=== PATIENT | female | born 1950 | race Two or more races ===

== ENCOUNTER 2022-10-04 01:50 | Inpatient (IN) | payer MEDICARE, MEDICAID ==
[~2022-10-04] VITALS: Ht 160 cm; Wt 60.3 kg
[2022-10-04] MEDS ORDERED: clonazePAM 0.5 MG TABLET PO PRN (02:30)
[2022-10-04] MEDS ORDERED: MAG HYDROX/AL HYDROX/SIMETH 30 ML UDC PO PRN (02:30)
[2022-10-04] MEDS ORDERED: ACETAMINOPHEN 325 MG TABLET PO PRN (02:30)
[2022-10-04] MEDS ORDERED: MAGNESIUM HYDROXIDE 30 ML UDC PO PRN (02:30)
[2022-10-04] MEDS ORDERED: MELA10TA10 PO (02:42)
[2022-10-04] MEDS ORDERED: ESCI5TAB PO (02:42)
[2022-10-04 03:06] VITALS: BP 115/71
--- NOTE | 2022-10-04 03:20 | NUR ---
GPS ADMISSION NOTE: ADMITTED 72 Y/O FEMALE FROM [facility]. ARRIVED ON THIS UNIT AT 0200 VIA STRETCHER WITH 2 EMT ESCORTS. PATIENT ADMITTED ON 5150 HOLD FOR DTS AND DTO. PATIENT SUBJECT USED SHARP KNIFE AND THREATENED TO KILL HERSELF AND HER DAUGHTER. UPON FACE TO FACE ASSESSMENT.PATIENT IS NOTED ,DISHEVELED ,DISORGANIZED,UNCOOPERATIVE ,AGGRESSIVE,CONFUSED ,DISORGANIZED AND NEEDS REDIRECTION. PATIENT IS CURRENTLY LYING IN BED,AWAKE HAS NO S/S OR COMPLAINT OF PAIN.PATIENT IS DISPLAYING NO S/S OF APPARENT DISTRESS.PATIENT BREATHING EVEN AND UNLABORED WITH EQUAL RISE AND FALL OF CHEST.PATIENT IS ALERT AND ORIENTED X1.ON ROOM AIR.PATIENT ASSISTED FOR TURNING AND REPOSITION Q2H AND PRN FOR COMFORT AND CIRCULATION.PATIENT HAS NO NEEDS AT THIS TIME.PATIENT DENIES SUICIDE IDEATIONS AND HOMICIDAL IDEATIONS AT THIS TIME.PATIENT REFUSED TO SIGN ANY PAPER WORK.DUE TO CONFUSION. PATIENT ADVISED OF HER HOLD AND PATIENT RIGHTS BOOKLET GIVEN.PATIENT IS UNDER THE PSYCHIATRIC CARE OF AND THE MEDICAL CARE OF DAVE DUCKWORTH. CHECKED FOR CONTRABAND. PATIENT HAS NO CONTRABAND .PATIENT ADVANCED DIRECTIVES PREFERENCE,IMMUNIZATIONS QUESTIONER,NECESSARY PAPER WORKS COMPLETED.PATIENT REFUSED SKIN ASSESSMENT. AND BLOOD SUGAR CHECK/ENCOURAGE BUT STRONGLY REFUSED. PATIENT ORIENTATED TO ROOM.FLOOR,AND STAFF WITH ALL QUESTIONS ANSWERED.PATIENT EDUCATED TO THE USE OF THE CALL THEODORE.PATIENT BED SIDE RAILS UPX2 FOR SAFETY.PATIENT BED IS LOCKED,LOW AND WILL CONTINUE TO MONITOR THIS PATIENT Q15 MIN WITH THE HELP OF STAFF TO MAINTAIN SAFETY.
[2022-10-04] MEDS ORDERED: BLOOD SUGAR DIAGNOSTIC 1 EACH STRIP IN ONE (03:30)
--- NOTE | 2022-10-04 03:37 | NUR ---
NURSE NOTE: PATIENT REFUSED MRSA NARES SWAB .ENCOURAGE X3 BUT PATIENTS STRONGLY REFUSED. PATEINT IS ANXIOUS,CONFUSED,DISORIENTED ,DISORGANIZED AND VERY AGITATED.
[2022-10-04] MEDS: ESCITALOPRAM OXALATE (10 MG) 10 MG TABLET PO SCH (12:00)
[2022-10-04] MEDS: ARIPIPRAZOLE 2 MG TABLET PO SCH (12:00)
--- NOTE | 2022-10-04 12:40 | NUR ---
GPS/RN PT REFUSED MEDS FOR 1200 OFFERED X3. COMMUNICATED WITH HELP OF ANASTASIIA ESCAMILLA LVN PT IS SYRIAN SPEAKING.
[2022-10-04 16:00] VITALS: BP 157/87
[2022-10-04 20:29] VITALS: BP 150/68
[2022-10-05 08:00] VITALS: BP 140/56
[2022-10-05] MEDS: ESCITALOPRAM OXALATE (10 MG) 10 MG TABLET PO SCH (09:00)
[2022-10-05] MEDS: ARIPIPRAZOLE 2 MG TABLET PO SCH (09:00)
--- NOTE | 2022-10-05 09:12 | NUR ---
CHASTITY Clinical Note: Pt placed on a 5150 hold for danger to self and GD. Pt grabbed a knife wanting to end her life. Pt has been aggressive at home. Per hold, pt lives at home located at [address] [place], [place] [id number]. SW will locate family contact information to discuss treatment/discharge plan.
--- NOTE | 2022-10-05 09:12 | NUR ---
CHASTITY Initial Discharge Plan: Per hold, pt lives at home located at [address] [place] [address]. SW will locate family contact information to discuss treatment/discharge plan. CHASTITY will coordinate with MD, family, and pt to help coordinate appropriate discharge.
--- NOTE | 2022-10-05 11:06 | NUR ---
RN-CO: PATIENT DENIES PAIN AND DISCOMFORTS. KENYAN SPEAKING, SHE IS EASILY AGITATED, SHE IS PARANOID AND REFUSED ALL HER MEDICATIONS. SHE DOESN'T WANT TO ATTEND GROUP ACTIVITIES. WE NOTIFIED DR JENKINS OF MEDICATION REFUSAL.
--- NOTE | 2022-10-05 11:07 | NUR ---
RN-CO: PT IS ALSO VERY CONFUSED AND DISORGANIZED, SHE NEEDS MODERATE ASSISTANCE IN ADL.
--- NOTE | 2022-10-05 11:50 | NUR ---
CHASTITY Family Contact: CHASTITY contacted pt's daughter Denisse ([phone]) and discussed treatment/discharge plan. She stated that she is the DPOA and will send the information to this ticket writer. Daughter stated that pt has been diagnosed with dementia when she was 60-65 year old and stated that it has been declining. She stated that pt was living at her residence but daughter moved in with her due to her not being able to care for self. She stated that she has a CHASTITY Pizarro ([phone]) who would want this ticket writer to contact to coordinate dc. CHASTITY will call and coordinate.
--- NOTE | 2022-10-05 12:00 | NUR ---
CHASTITY Note: SW contacted pt's CHASTITY Pizarro ([phone]) and the mailbox was full unable to accept any messages. SW will attempt to contact again.
--- NOTE | 2022-10-05 15:32 | NUR ---
CHASTITY DPOA PAPERWORK: Pt daughter Denisse ([phone]) sent DPOA document. SW placed in the chart.
[2022-10-05 20:44] VITALS: BP 142/68
[2022-10-05] MEDS: TEMAZEPAM 7.5 MG CAPSULE PO PRN (22:42)
[2022-10-06 08:00] VITALS: BP 133/61
[2022-10-06] MEDS: ESCITALOPRAM OXALATE (10 MG) 10 MG TABLET PO SCH (09:00)
[2022-10-06] MEDS: ARIPIPRAZOLE 2 MG TABLET PO SCH (09:00)
[2022-10-06 16:00] VITALS: BP 140/88
[2022-10-06 19:41] VITALS: BP 154/72
[2022-10-06] MEDS: TEMAZEPAM 7.5 MG CAPSULE PO PRN (20:39)
[2022-10-07 08:00] VITALS: BP 151/76
[2022-10-07] MEDS: ESCITALOPRAM OXALATE (10 MG) 10 MG TABLET PO SCH (09:00)
[2022-10-07] MEDS: ARIPIPRAZOLE 2 MG TABLET PO SCH (09:00)
--- NOTE | 2022-10-07 10:13 | NUR ---
RN-CO: DR JENKINS MADE AWARE THAT PT REFUSED HER PSYCH MEDS X 3DAYS, AWAITING FOR RESPONSE.
--- NOTE | 2022-10-07 10:47 | NUR ---
RN-CO: Received patient pacing along the hallway,appears to be confused,talking ,mumbling ,taklking to self,preoccupied to her own thought process.No s/s of acute distress noted.Will continue to monitor q15 min rounds for safety. PATIENT REFUSED ALL MEDS IN THE MORNING, DR JENKINS MADE AWARE.
--- NOTE | 2022-10-07 15:10 | NUR ---
Court Hearing: SW notified patient's Denisse ([phone]) DPOA of 5250 hearing.
--- NOTE | 2022-10-07 15:15 | NUR ---
Court Hearing: Patient's court hearing for 2810 was today and it was upheld for GD.
[2022-10-07 16:00] VITALS: BP 155/80
[2022-10-07 20:19] VITALS: BP 136/86
[2022-10-08 08:00] VITALS: BP 118/63
[2022-10-08] MEDS: ESCITALOPRAM OXALATE (10 MG) 10 MG TABLET PO SCH (09:00)
[2022-10-08] MEDS: ARIPIPRAZOLE 2 MG TABLET PO SCH (09:00)
[2022-10-08 16:00] VITALS: BP 146/60
--- NOTE | 2022-10-08 17:53 | NUR ---
Dr. Ahn made aware that the Rise hearing scheduled tomorrow 10/09/22 @9:30AM.
--- NOTE | 2022-10-08 18:05 | NUR ---
RN-NOTES PATIENT STAYS IN THE ROOM THIS SHIFT REFUSED TO EAT DESPITE ENCOURAGEMENT AND EXPLANATIONS RISK AND BENEFITS.PATIENT GETS ANGRY AND IRRITABLE. PATIENT IS NON COMPLIANT WITH MEDICATIONS. PATIENT DRINK MILK AND WATER ONLY.PATIENT AMBULATES TO THE BATHROOM WITH STEADY GAIT.WILL ENDORSE TO INCOMING NURSE FOR THE CONTINUITY OF CARE.
[2022-10-08 20:00] VITALS: BP 112/68
--- NOTE | 2022-10-08 20:02 | NUR ---
RN NOTES:RECEIVED PATIENT WALKING AROUND THE UNIT, A/OX1. NO S/SX OF ACUTE DISTRESS NOTED. PATIENT IS ,CONFUSED, FORGETFUL ANXIOUS, EASILY AGITATED ,DELUSIONAL , LOUD TALIKG TO SELF , UNCOOPERTIVE, PARANOID , GUARDED NON COMPLIANT WITH CARE AND MEDS,NEEDS FREQUENTLY REDIRECTIONS, ENCOURAGED TO VERBALIZED ANY FEELING OR CONCERN ,SAFETY PRECAUTIONS MAINTAINED. WILL CONTINUE TO MONITOR Q15MIN ROUNDS FOR SAFETY.
--- NOTE | 2022-10-08 22:14 | NUR ---
RN NOTES: REFUSED SKIN ASSESSMENT PT. REFUSED FULL BODY SKIN ASSESSMENT, AND PHOTOS TAKEN, ENCOURAGED X3 RISKS AND BENEFITS EAXPLAINED,PT. STRONGLY REFUSED,PER PT.STATES MY SKIN IS FINE, PT. BEHAVIOR VERY UNCCOOPERTIVE,YELLING SCREAMING ANXIOUS, PARANOID, NONREDIRECTABLE .
[2022-10-09 08:00] VITALS: BP 133/90
[2022-10-09] MEDS: ESCITALOPRAM OXALATE (10 MG) 10 MG TABLET PO SCH (09:00)
[2022-10-09] MEDS: ARIPIPRAZOLE 2 MG TABLET PO SCH ×2 (09:00→16:11)
--- NOTE | 2022-10-09 09:11 | NUR ---
RN-NOTES PATIENT REFUSED ABILIFY AND LEXAPRO P.O DESPITE EXPLANATIONS OF THE RISK AND BENEFITS WITH THE ESTONIAN SPEAKING STAFF HELP. PATIENT CONTINUE TO REFUSED. OFFERED X3.
[2022-10-09 16:00] VITALS: BP 112/52
[2022-10-09] MEDS: OLANZAPINE 10 MG VIAL IM PRN (16:14)
--- NOTE | 2022-10-09 17:08 | NUR ---
RN-NOTES PATIENT REFUSED ABILIFY 2MG P.O. ZYPREXA 2.5MG IM GIVEN ORDERED. PATIENT IS RIEISED.
--- NOTE | 2022-10-09 19:30 | NUR ---
GPS RN NOTE, RECEIVED PATIENT AWAKE AND IN BED, NO S/S OR COMPLAINTS OF PAIN AT THIS TIME. PATIENT IS DISPLAYING NO S/S OF APPARENT DISTRESS AT THIS TIME. PATIENT BREATHING IS UNLABORED WITH EQUAL RISE AND FALL OF THE CHEST. PATIENT IS ALERT AND ORIENTED X 1 ON ROOM AIR WITH A SPO2 99%. PATIENT IS REFUSING MEDICATIONS, CONFUSED, PARANOID, ANXIOUS AT TIMES, AND COOPERATIVE. PATIENT DENIES SUICIDAL AND HOMICIDAL IDEATIONS AT THIS TIME. PATIENT ASSISTED WITH TURNING AND REPOSITIONING Q2HR AND PRN FOR COMFORT AND CIRCULATION. PATIENT HAS NO NEEDS AT THIS TIME. PATIENT EDUCATED ON THE USE OF THE CALL THEODORE. PATIENT BED SIDE RAILS UP X 2 FOR SAFETY. PATIENT BED IS LOCKED, LOW, WITH BED ALARM ON. WILL CONTINUE TO MONITOR THIS PATIENT Q15 MINUTES WITH THE HELP OF STAFF TO MAINTAIN SAFETY.
[2022-10-09 20:00] VITALS: BP 115/96
[2022-10-10 08:00] VITALS: BP 145/89
[2022-10-10] MEDS: ARIPIPRAZOLE 2 MG TABLET PO SCH ×3 (09:00→17:00)
[2022-10-10] MEDS: ESCITALOPRAM OXALATE (10 MG) 10 MG TABLET PO SCH ×2 (09:00→09:40)
[2022-10-10] MEDS: OLANZAPINE 10 MG VIAL IM PRN ×2 (09:52→17:18)
[2022-10-10 16:00] VITALS: BP 145/68
--- NOTE | 2022-10-10 16:30 | NUR ---
NURSE NOTE: PT VERY SLEEPY THROUGHOUT SHIFT. ATTEMPTED TO HAVE PT EAT, BUT SHE REFUSED. TRIED TO WAKE PT UP FOR 1700 MEDS, BUT PT VERY SLEEPY AND REFUSED. DR ROSA NOTIFIED. ORDERED TO HOLD 1700 DOSE OF ZYPREXA. WILL CONT TO MONITOR.
[2022-10-10 16:50] LABS: BASOPHILS % (AUTO) 0.6 % (0.0-2.0); EOSINOPHILS % (AUTO) 1.2 % (0.0-6.0); HEMATOCRIT 39 % (33-45); HEMOGLOBIN 12.1 g/dL (11.5-14.8); LYMPHOCYTES # (AUTO) 1.5 K/uL (0.8-4.8); LYMPHOCYTES % (AUTO) 20.6 % (20.0-44.0); MEAN CORPUSCULAR HGB CONC 31 g/dl (31.0-36.0); MEAN CORPUSCULAR VOLUME 81 fL (82-100); MONOCYTES # (AUTO) 0.4 K/uL (0.1-1.30); MONOCYTES % (AUTO) 5.2 % (2.0-12.0); NEUTROPHILS # (AUTO) 5.3 K/uL (1.8-8.9); NEUTROPHILS % (AUTO) 72.4 % (43.0-81.0); PLATELET COUNT (AUTO) 312 K/uL (150-450); RED BLOOD CELL COUNT(AUTO) 4.76 MIL/uL (4.0-5.2); WHITE BLOOD COUNT (AUTO) 7.3 K/uL (4.3-11.0)
[2022-10-10 17:13] LABS: ALBUMIN 3.7 g/dL (3.4-5.0); BILIRUBIN,TOTAL 0.2 mg/dL (0.2-1.0); CALCIUM, SERUM 9.8 mg/dL (8.5-10.1); POTASSIUM 4.9 mmol/L (3.5-5.1); TOTAL PROTEIN, SERUM 7.4 g/dL (6.4-8.2)
--- NOTE | 2022-10-10 20:06 | NUR ---
RECEIVED PATIENT SITTING UP IN TAYLOR CHAIR,AWAKE ALERT A/OX1. NO S/SX OF ACUTE DISTRESS NOTED.REFUSED TO STAYING IN BED,HIGH FALL RISKS PATIENT IS ,CONFUSED, FORGETFUL ANXIOUS, EASILY AGITATED DELUSIONAL , LOUD TALIKG TO SELF , UNCOOPERTIVE, PARANOID , GUARDED NON COMPLIANT WITH CARE AND MEDS,NEEDS FREQUENTLY REDIRECTIONS, ENCOURAGED TO VERBALIZED ANY FEELING OR CONCERN ,SAFETY PRECAUTIONS MAINTAINED. WILL CONTINUE TO MONITOR Q15MIN ROUNDS FOR SAFETY.
[2022-10-10 20:33] VITALS: BP 125/68
[2022-10-11 08:00] VITALS: BP 161/84
[2022-10-11] MEDS: ESCITALOPRAM OXALATE (10 MG) 10 MG TABLET PO SCH (09:46)
[2022-10-11] MEDS: ENSURE ENLIVE CHOC 237 ML CAN PO SCH ×2 (09:46→17:04)
[2022-10-11] MEDS: ARIPIPRAZOLE 2 MG TABLET PO SCH ×2 (09:46→17:03)
[2022-10-11 16:00] VITALS: BP 136/65
--- NOTE | 2022-10-11 16:18 | NUR ---
NURSE NOTE: PT ANXIOUS, TAKING CLOTHES OFF, YELLING AT STAFF. KLONOPIN PO ADMINISTERED ORDERED. PT KOBE WELL. WILL CONT TO MONITOR.
--- NOTE | 2022-10-11 17:18 | NUR ---
NURSE NOTE: PT CALM AT THIS TIME, ATIVAN EFFECTIVE AT THIS TIME. WILL CONT TO MONITOR.
[2022-10-11 20:45] VITALS: BP 140/66
[2022-10-12 08:00] VITALS: BP 128/53
[2022-10-12] MEDS: ENSURE ENLIVE CHOC 237 ML CAN PO SCH ×2 (08:00→16:39)
[2022-10-12] MEDS: ESCITALOPRAM OXALATE (10 MG) 10 MG TABLET PO SCH (09:53)
[2022-10-12] MEDS: ARIPIPRAZOLE 2 MG TABLET PO SCH ×2 (09:54→16:39)
[2022-10-12 16:00] VITALS: BP 133/57
[2022-10-12 20:26] VITALS: BP 128/59
[2022-10-12] MEDS: TEMAZEPAM 7.5 MG CAPSULE PO PRN (22:25)
--- NOTE | 2022-10-12 22:25 | NUR ---
NURSE NOTE: PT UNABLE TO SLEEP AT THIS TIME. TEMAZEPAM ADMIN ORDERED. PT KOBE WELL. WILL CONT TO MONITOR.
--- NOTE | 2022-10-12 23:25 | NUR ---
NURSE NOTE: PT CONT AWAKE, BUT IS DROWSY. WILL CONT TO MONITOR AND PASS IN REPORT.
[2022-10-13 08:00] VITALS: BP 142/44
[2022-10-13] MEDS: ENSURE ENLIVE CHOC 237 ML CAN PO SCH ×2 (08:30→17:18)
[2022-10-13] MEDS: ESCITALOPRAM OXALATE (10 MG) 10 MG TABLET PO SCH (08:54)
[2022-10-13] MEDS: ARIPIPRAZOLE 2 MG TABLET PO SCH ×2 (08:54→17:19)
[2022-10-13 16:00] VITALS: BP 111/72
--- NOTE | 2022-10-13 19:03 | NUR ---
RN- CLOSING NOTES PATIENT IS SAT UP IN THE TAYLOR CHAIR, BREATHING EVEN AND NON LABORED WITH NO S/S OF DISTRESS. PATIENT IS HYPERVERBAL, CONFUSED, AGGRESSIVE, EASILY AGITATED, UNCOOPERATIVE, ATTEMPTING TO STICK OUT AT STAFF AND RESISTANT TO MEDICATIONS BUT MEDICATION COMPLIANT WITH ENCOURAGEMENT. DENIES SI/HI AT THIS TIME. WILL CONTINUE TO MONITOR Q 15 MINUTES FOR SAFETY AND BEHAVIOR.
[2022-10-13 20:12] VITALS: BP 133/56
[2022-10-13] MEDS: TEMAZEPAM 7.5 MG CAPSULE PO PRN (21:16)
[2022-10-14 08:00] VITALS: BP 122/53
[2022-10-14] MEDS: ENSURE ENLIVE CHOC 237 ML CAN PO SCH ×2 (08:10→17:10)
[2022-10-14] MEDS: ESCITALOPRAM OXALATE (10 MG) 10 MG TABLET PO SCH (09:04)
[2022-10-14] MEDS: ARIPIPRAZOLE 2 MG TABLET PO SCH ×2 (09:04→17:10)
[2022-10-14 16:00] VITALS: BP 119/67
--- NOTE | 2022-10-14 18:52 | NUR ---
RN- CLOSING NOTES PATIENT IS SAT UP IN THE TAYLOR CHAIR, BREATHING EVEN AND NON LABORED WITH NO S/S OF DISTRESS. PATIENT IS CONFUSED, EASILY AGITATED, UNCOOPERATIVE, ISOLATIVE, QUIET, AND ATTEMPTING TO GET OUT OF BED WITHOUT ASSISTANCE. PATIENT IS RESISTANT TO MEDICATIONS BUT MEDICATION COMPLIANT WITH ENCOURAGEMENT. DENIES SI/HI BUT IS CONFUSED AT THIS TIME. WILL CONTINUE TO MONITOR Q 15 MINUTES FOR SAFETY AND BEHAVIOR.
[2022-10-14 20:14] VITALS: BP 133/54
[2022-10-15] MEDS: TEMAZEPAM 7.5 MG CAPSULE PO PRN (00:12)
--- NOTE | 2022-10-15 00:15 | NUR ---
RN NOTES-RESTORIL PATIENT IS VERY ANXIOUS AND RESTLESS. GAVE RESTORIL 7.5MG PRN WITH APPLE SAUCE. WILL CONTINUE TO MONITOR THE PATIENT.
[2022-10-15 08:00] VITALS: BP 119/67
[2022-10-15] MEDS: ENSURE ENLIVE CHOC 237 ML CAN PO SCH ×2 (08:10→16:26)
[2022-10-15] MEDS: ESCITALOPRAM OXALATE (10 MG) 10 MG TABLET PO SCH (10:19)
[2022-10-15] MEDS: ARIPIPRAZOLE 2 MG TABLET PO SCH ×2 (10:20→16:16)
--- NOTE | 2022-10-15 10:54 | NUR ---
CHASTITY Facility Referral: CHASTITY sent clinicals to Paige montero ([phone]) to help find placement. CHASTITY sent H & P, progress notes, and medication list.
--- NOTE | 2022-10-15 11:24 | NUR ---
CHASTITY Facility Contact: CHASTITY spoke with Paige montero ([phone]) who stated pt is accepted at [facility]
[2022-10-15 16:00] VITALS: BP 134/65
--- NOTE | 2022-10-15 18:02 | NUR ---
RN-NOTES PATIENT IN THE DAY ROOM UP IN THE TAYLOR CHAIR,GUARDED, A/O X1 NO ACUTE DISTRESS NOTED. COMPLIANT WITH MEDICATIONS.NOTED PATIENT TALKING AND WHISTLING TO SELF . NEEDS FREQUENT REDIRECTION AND ORIENTATION.PATIENT NEEDS MODERATE ASSIST IN AMBULATION AND ADL'S. GOOD DIANE CARE RENDERED. ALL NEEDS ATTENDED AND ANTICIPATED. WILL ENDORSE TO INCOMING NURSE FOR CONTINUITY OF CARE.
--- NOTE | 2022-10-15 20:05 | NUR ---
RECEIVED PATIENT SITTING UP IN TAYLOR CHAIR,AWAKE ALERT A/OX1. NO S/SX OF ACUTE DISTRESS NOTED.REFUSED TO STAYING IN BED,HIGH FALL RISKS PATIENT IS ,CONFUSED, FORGETFUL, ANXIOUS, EASILY AGITATED DELUSIONAL , LOUD TALIKG TO SELF , UNCOOPERTIVE, PARANOID , GUARDED, NON COMPLIANT WITH CARE AND MEDS,NEEDS FREQUENTLY REDIRECTIONS, ENCOURAGED TO VERBALIZED ANY FEELING OR CONCERN ,SAFETY PRECAUTIONS MAINTAINED. WILL CONTINUE TO MONITOR Q15MIN ROUNDS FOR SAFETY.
[2022-10-16 08:00] VITALS: BP 129/97
[2022-10-16] MEDS: ARIPIPRAZOLE 2 MG TABLET PO SCH ×2 (08:16→16:08)
[2022-10-16] MEDS: ENSURE ENLIVE CHOC 237 ML CAN PO SCH ×2 (08:16→17:41)
[2022-10-16] MEDS: ESCITALOPRAM OXALATE (10 MG) 10 MG TABLET PO SCH (08:16)
--- NOTE | 2022-10-16 12:05 | NUR ---
CHASTITY Family Contact: SW contacted pt's daughter Denisse ([phone]) and discussed that pt is accepted at [facility] and she was agreeable of this.
[2022-10-16 16:00] VITALS: BP 144/72
--- NOTE | 2022-10-16 18:07 | NUR ---
RN-NOTES PATIENT IN THE DAY ROOM UP IN THE TAYLOR CHAIR,GUARDED, A/O X1 NO ACUTE DISTRESS NOTED. COMPLIANT WITH MEDICATIONS.NOTED PATIENT TALKING TO SELF . NEEDS FREQUENT REDIRECTION AND ORIENTATION.PATIENT NEEDS MODERATE ASSIST IN AMBULATION AND ADL'S. GOOD DIANE CARE RENDERED. ALL NEEDS ATTENDED AND ANTICIPATED. WILL ENDORSE TO INCOMING NURSE FOR CONTINUITY OF CARE.
[2022-10-16 20:00] VITALS: BP 117/61
--- NOTE | 2022-10-16 20:40 | NUR ---
GPS SANITATION WORKER HOSING MACHINERY NOTE:RECEIVED PATIENT SITTING UP IN TAYLOR CHAIR,AWAKE ALERT A/OX1. NO S/SX OF ACUTE DISTRESS NOTED.REFUSED TO STAYING IN BED,HIGH FALL RISKS PATIENT IS ,CONFUSED, FORGETFUL, ANXIOUS, EASILY AGITATED DELUSIONAL , LOUD TALKING TO SELF , UNCOOPERTIVE, PARANOID , GUARDED, NON COMPLIANT WITH CARE AND MEDS,NEEDS FREQUENTLY REDIRECTIONS, ENCOURAGED TO VERBALIZED ANY FEELING OR CONCERN ,SAFETY PRECAUTIONS MAINTAINED. WILL CONTINUE TO MONITOR Q15MIN FOR SAFETY AND BEHAVIOR.
[2022-10-17] MEDS: ENSURE ENLIVE CHOC 237 ML CAN PO SCH ×2 (07:45→17:11)
[2022-10-17 08:00] VITALS: BP 136/88
[2022-10-17] MEDS: ARIPIPRAZOLE 2 MG TABLET PO SCH ×2 (08:12→17:11)
[2022-10-17] MEDS: ESCITALOPRAM OXALATE (10 MG) 10 MG TABLET PO SCH (08:12)
[2022-10-17 16:00] VITALS: BP 125/59
--- NOTE | 2022-10-17 18:28 | NUR ---
RN-NOTES PATIENT IN THE DAY HALLWAY UP IN THE TAYLOR CHAIR,GUARDED, A/O X1 NO ACUTE DISTRESS NOTED. COMPLIANT WITH MEDICATIONS.NOTED PATIENT TALKING AND MUMBLING TO SELF . NEEDS FREQUENT REDIRECTION AND ORIENTATION.PATIENT NEEDS MODERATE ASSIST IN FEEDING, AMBULATION AND ADL'S. GOOD DIANE CARE RENDERED. ALL NEEDS ATTENDED AND ANTICIPATED. WILL ENDORSE TO INCOMING NURSE FOR CONTINUITY OF CARE.
--- NOTE | 2022-10-17 19:40 | NUR ---
referral rn notes: Received patient sitting in dasha chair in the hallway. Mumbling to herself in cuban. Patient stated that "she speaks little yakut only". a/o x1. calm. Patient needs frequent redirecting. no c/o pain at this time. On room air. breathing even and unlabored. no acute distress noted. will continue to monitor for safety and behavior.
--- NOTE | 2022-10-17 20:30 | NUR ---
sugar cane farm manager notes: Patient refused vital signs to be taken. attempted x3, explaining the benefits, patient still refused.
[2022-10-18] MEDS: TEMAZEPAM 7.5 MG CAPSULE PO PRN ×3 (00:57→23:00)
--- NOTE | 2022-10-18 01:00 | NUR ---
commercial pest control representative notes: administered PRN Restoril 7.5 mg po for insomnia.
--- NOTE | 2022-10-18 06:33 | NUR ---
REAL ESTATE OFFICE MANAGER NOTES: PATIENT AWAKE AT THIS TIME. CALM. NO ACUTE DISTRESS NOTED. CONFUSED. EASILY AGITATED. HYPERVERBAL. MEDICATION COMPLIANT. AMBULATORY WITH EPISODES OF WANDERING. NO C/O PAIN AT THIS TIME. ALL NEEDS ANTICIPATED AND ATTENDED. WILL ENDORSE TO ONCOMING SHIFT FOR CONTINUITY OF CARE.
[2022-10-18 08:00] VITALS: BP 132/73
[2022-10-18] MEDS: ENSURE ENLIVE CHOC 237 ML CAN PO SCH ×2 (09:05→17:18)
[2022-10-18] MEDS: ESCITALOPRAM OXALATE (10 MG) 10 MG TABLET PO SCH (09:06)
[2022-10-18] MEDS: ARIPIPRAZOLE 2 MG TABLET PO SCH ×2 (09:06→17:18)
[2022-10-18 16:00] VITALS: BP 124/53
--- NOTE | 2022-10-18 20:00 | NUR ---
RN NOTE PATIENT REFUSED WEEKLY SKIN ASSESSMENT. EXPLAINED RISKS/BENEFITS.
[2022-10-18 20:39] VITALS: BP 136/60
[2022-10-19 08:00] VITALS: BP 131/69
--- NOTE | 2022-10-19 08:09 | NUR ---
SW Discharge Note: Patient will be discharged to usp facility, [facility], located at [place] [address] ([phone]). Please arrange ambulance transportation at 1PM. hospice social worker spoke with Paige montero ([phone]), who stated patient will be accepted at the facility today. Patients daughter Denisse ([phone]) is aware and agreeable. Patient is alert and oriented x1 and is unable to plan for self-care. Patient denies any suicidal or homicidal ideation. Patient is aware and agreeable with discharge plans. Patient will continue to follow-up with (Psychiatrist) Dr. hAn [address], [place] [address]; ([phone]) and (Locomotive Pipe Fitter) Dr. Nathan [address], [place] [address]; ([phone]).
[2022-10-19] MEDS: ENSURE ENLIVE CHOC 237 ML CAN PO SCH (08:35)
[2022-10-19] MEDS: ARIPIPRAZOLE 2 MG TABLET PO SCH (08:35)
[2022-10-19] MEDS: ESCITALOPRAM OXALATE (10 MG) 10 MG TABLET PO SCH (08:36)
--- NOTE | 2022-10-19 14:00 | NUR ---
BONDING MACHINE TENDER NOTE: 72 Y/O FEMALE DISCHARGED TO [facility], IN STABLE CONDITION. COMPLIANT WITH MEDICATIONS, COOPERATIVE WITH TREATMENT PLAN. PT DENIES SI/HI/AVH AND INSTRUCTED TO GO TO THE CLOSEST ER IF DEVELOPING SI/HI. BEHAVIOR IMPROVED, PSYCHIATRIC TX PLAN MET, MEDICAL TX PLAN DEFERRED FOR CONTINUAL MONITORING. EDUCATED PT ABOUT AFTER CARE PLAN AND COPY PROVIDED. PT HAD NO PERSONAL BELONGINGS. MEDICATIONS RECONCILED WITH DR. CRANE AND DR. HAINES. REPORT GIVEN TO DOMINIK NURSE AT [facility] FOR CONTINUITY OF CARE. PT REFUSED TO SIGN DISCHARGE PAPERWORK. NO WOUNDS TO TAKE PICTURES OF PT LEFT THE UNIT AT 1400 VIA AMBULANCE.
== END 2022-10-19 14:00 | DRG 885 ==
LOC: GPS 01:50
PROVIDERS: ADMIT Psychiatry & Neurology Psychiatry; ATTEND Nurse Practitioner Acute Care
DX: F33.3 Major depressive disorder, recurrent, severe with psychotic symptoms (principal); F02.83 Dementia in other diseases classified elsewhere, unspecified severity, with mood disturbance; R45.851 Suicidal ideations; F02.80 Dementia in other diseases classified elsewhere, unspecified severity, without behavioral disturbance, psychotic disturbance, mood disturbance, and anxiety; G30.9 Alzheimer's disease, unspecified; D64.9 Anemia, unspecified; Z79.899 Other long term (current) drug therapy; Z91.199 Patient's noncompliance with other medical treatment and regimen due to unspecified reason; Z91.81 History of falling; Z20.822 Contact with and (suspected) exposure to COVID-19
CPT/HCPCS: 36415; 80053-TC; 85025-TC; 87081-TC; 97116-TC; 97530-TC; J3490

== ENCOUNTER 2022-10-21 18:21 | Inpatient (IN) | payer MEDICARE, OTHER ==
[~2022-10-21] VITALS: Ht 160 cm; Wt 59.0 kg
--- NOTE | 2022-10-21 18:34 | NUR ---
boby, from [facility], sent by PMD, combative, agitated, for psych admission. PLACED IN BED, AWAKE ALERT, LANGUAGE BARRIER, BREATHING UNLABORED SATURATING AT 96%RA, AGITATED. WILL CONTINUE TO MONITOR.
--- NOTE | 2022-10-21 19:17 | NUR ---
Judith knox in [facility] - 10/21/22 at 1936 by ZEINA CRYSTALIZER TENDER AT BEDSIDE
--- NOTE | 2022-10-21 19:17 | NUR ---
WIRE WINDING MACHINE TENDER AT BEDSIDE
--- NOTE | 2022-10-21 19:36 | NUR ---
SWAB FOR COVID19 SENT TO LAB
--- NOTE | 2022-10-21 19:36 | NUR ---
Judith knox in [facility] - 10/21/22 at 1936 by ZEINA SWAB FOR COVID19 SENT TO LAB
[2022-10-21 20:00] LABS: BASOPHILS % (AUTO) 0.5 % (0.0-2.0); EOSINOPHILS % (AUTO) 1.3 % (0.0-6.0); HEMATOCRIT 36 % (33-45); HEMOGLOBIN 11.2 g/dL (11.5-14.8); LYMPHOCYTES # (AUTO) 1.3 K/uL (0.8-4.8); MEAN CORPUSCULAR HGB CONC 31 g/dl (31.0-36.0); MEAN CORPUSCULAR VOLUME 83 fL (82-100); MONOCYTES # (AUTO) 0.4 K/uL (0.1-1.30); MONOCYTES % (AUTO) 3.9 % (2.0-12.0); NEUTROPHILS % (AUTO) 81.3 % (43.0-81.0); PLATELET COUNT (AUTO) 305 K/uL (150-450); RED BLOOD CELL COUNT(AUTO) 4.34 MIL/uL (4.0-5.2); WHITE BLOOD COUNT (AUTO) 9.9 K/uL (4.3-11.0)
--- NOTE | 2022-10-21 20:05 | NUR ---
URINE SAMPLE SENT TO LAB
[2022-10-21 20:16] LABS: ALANINE AMINOTRANSFERASE 26 U/L (12-78); ALBUMIN 3.3 g/dL (3.4-5.0); ALKALINE PHOSPHATASE 106 U/L (46-116); ASPARTATE AMINOTRANSFERASE 29 U/L (15-37); BILIRUBIN,TOTAL 0.1 mg/dL (0.2-1.0); CALCIUM, SERUM 9.3 mg/dL (8.5-10.1); CARBON DIOXIDE 29 mmol/L (21-32); CHLORIDE 106 mmol/L (98-107); CREATININE 1.5 mg/dL (0.6-1.3); GLUCOSE 90 mg/dL (74-106); POTASSIUM 4.7 mmol/L (3.5-5.1); SODIUM SERUM 143 mmol/L (136-145); TOTAL PROTEIN, SERUM 6.6 g/dL (6.4-8.2); UREA NITROGEN, BLOOD 37 mg/dL (7-18)
[2022-10-21 20:23] LABS: THYROID STIMULATING HORMONE 1.668 uIU/mL (0.358-3.74)
[2022-10-21 20:46] LABS: ALCOHOL, BLOOD < 3 mg/dL (0-0)
[2022-10-21 20:53] LABS: BILIRUBIN,URINE NEGATIVE (NEGATIVE); COLOR,URINE YELLOW (YELLOW); LEUKOCYTE ESTERASE ,URINE 2+ (NEGATIVE); NITRITE, URINE POSITIVE (NEGATIVE); PROTEIN,URINE TRACE mg/dl (NEGATIVE); UGLUCOSE NEGATIVE (NEGATIVE); UROBILINOGEN,URINE 0.2 EU/dL (0.2)
--- NOTE | 2022-10-21 20:59 | NUR ---
Judith knox in [facility] - 10/21/22 at 2113 by THELMA NOTIFIED CRISIS EVALUATION TEAM PROSPER GEORGE PSYCH EVALUATION.
--- NOTE | 2022-10-21 21:06 | NUR ---
CALLED LUCIO ENGEL FOR PSYCH EVAL
[2022-10-21 21:12] LABS: WBC,URINE TOO NUMEROUS TO COUN /HPF (0-3)
[2022-10-21 21:13] LABS: BACTERIA,URINE 3+ /HPF (None Seen); MUCUS,URINE Few /LPF (None Seen); SQUAMOUS EPITHELIAL CELL,UR 21-50 /HPF (None Seen)
[2022-10-21] MEDS ORDERED: CEFTRIAXONE 1 G VIAL IM ONE (22:00)
[2022-10-21] MEDS ORDERED: LIDOCAINE /MPF 1% VIAL 5 ML VIAL ONE (22:01)
[2022-10-21] MEDS ORDERED: CEFTRIAXONE 1 G VIAL ONE ×2 (22:01→22:07)
--- NOTE | 2022-10-21 22:29 | NUR ---
REPORT GIVEN TO RENALYN RN ROOM 211 FOR BUDDY
--- NOTE | 2022-10-21 23:09 | NUR ---
RECEIVED REPORT FROM NEREIDA GORDON, PT IN BED, ASLEEP. NO S/SX OF ACUTE RESPI DISTRESS NOTED AT THIS TIME. BILATERAL WRIST RESTRAINTS IN PLACE. WILL CONTINUE TO MONITOR UNTIL TRANSFER TO GPS.
--- NOTE | 2022-10-21 23:42 | NUR ---
[facility] AT BED SIDE
--- NOTE | 2022-10-22 00:30 | NUR ---
pt admitted GPS inpatient transported to 211 via [facility]
[2022-10-22 00:35] VITALS: BP 103/53
--- NOTE | 2022-10-22 00:35 | NUR ---
CUSTOMER PROGRAM MANAGER NOTE ADMITTED A 72-Y/O, FEMALE, PATIENT CAME FROM [facility]. INITIALLY PT CAME FROM [facility]. ADMITTED ON A 5150 HOLD FOR DTO/GD. PER HOLD, PT. ADMITTED HAS BEEN AGGRESSIVE TOWARDS STAFF, THROWING THINGS, REFUSING CARE, YELLING AND SCREAMING AND THREW HER BODILY FLUID AT STAFF. UPON FACE TO FACE EVALUATION, PATIENT IS CONFUSED, DISORGANIZED, EASILY GETS AGITATED/IRRITABLE. VERBALIZATION OF FEELINGS ENCOURAGED. SKIN ASSESSMENT DONE. SKIN INTACT. ALL BELONGINGS WERE CHECKED FOR CONTRABAND. PATIENT'S RIGHTS WERE DISCUSSED AND BOOKLET WAS GIVEN. PATIENT REFUSED TO SIGN ADMISSION PAPERWORK/CONSENT DUE TO CONFUSION. CONTACTED DR. CRANE AND HOSPITALIST DR. LANDIN AND INFORMED THEM OF THE ADMISSION. WILL CONTINUE TO MONITOR THE PATIENT Q15 MINUTES FOR SAFETY. Addendum: 10/22/22 at 0408 by RAMON MANN RN OFFERED PNEUMONIA VACCINE BUT PATIENT REFUSED.
[2022-10-22] MEDS ORDERED: BLOOD SUGAR DIAGNOSTIC 1 EACH STRIP IN ONE (01:00)
[2022-10-22] MEDS ORDERED: ACETAMINOPHEN 325 MG TABLET PO PRN (01:00)
[2022-10-22] MEDS ORDERED: MAG HYDROX/AL HYDROX/SIMETH 30 ML UDC PO PRN (01:00)
[2022-10-22] MEDS ORDERED: MAGNESIUM HYDROXIDE 30 ML UDC PO PRN (01:00)
[2022-10-22] MEDS ORDERED: ARIP5TAB10 PO (03:12)
[2022-10-22] MEDS ORDERED: LACT-246 PO (03:12)
[2022-10-22] MEDS ORDERED: ESCI10TA PO (03:12)
[2022-10-22] MEDS ORDERED: MULT-447 PO (03:12)
[2022-10-22 08:00] VITALS: BP 109/58
[2022-10-22] MEDS: ARIPIPRAZOLE 5 MG TABLET PO SCH ×2 (10:16→17:05)
[2022-10-22] MEDS: ESCITALOPRAM OXALATE (10 MG) 10 MG TABLET PO SCH (10:16)
--- NOTE | 2022-10-22 10:16 | NUR ---
RN- NOTES ABILIFY AND ESCITALOPRAM ADMINISTERED LATE DUE TO WAITING ON ACKNOWLEDGEMENT AND CLARIFICATION OF ORDERS.
--- NOTE | 2022-10-22 10:25 | NUR ---
CHASTITY Clinical Note: Pt placed on a 5150 hold for danger to others and GD. Per hold, she was aggressive at her facility. Patient currently resides at [facility], located at [address] [place] [address] ([phone]). CHASTITY spoke with Paige montero who stated pt is welcomed back. CHASTITY will contact pt's daughter Denisse ([phone]) and discuss treatment/discharge plan.
--- NOTE | 2022-10-22 10:25 | NUR ---
CHASTITY Initial Discharge Note: Patient currently resides at [facility], located at [address] [place] [address] ([phone]). CHASTITY spoke with Paige montero who stated pt is welcomed back. CHASTITY will contact pt's daughter Denisse ([phone]) and discuss treatment/discharge plan. CHASTITY will work with the MD, family, and treatment plan.
--- NOTE | 2022-10-22 10:27 | NUR ---
Treatment Plan: Pt unable to sign treatment plan due to her dementia.
[2022-10-22] MEDS: CEPHALEXIN MONOHYDRATE 250 MG CAPSULE PO SCH ×2 (12:02→21:15)
--- NOTE | 2022-10-22 13:17 | NUR ---
SW Family Contact: SW contacted pt's daughter Denisse ([phone]) and notified of admission. SW discussed treatment/discharge plan. Daughter would want pt to return back to [facility] when stable.
[2022-10-22 16:00] VITALS: BP 125/87
--- NOTE | 2022-10-22 19:57 | NUR ---
VANITA NOTES: RECEIVED PATIENT ON THE HALLWAY SITTING ON THE WHEELCHAIR,ROAMS AROUND . A/O X2 WITH CONFUSION,VERY PARANOID.BREATHING EVEN AND NON-LABORED. NO C/O PAIN AT THIS TIME. ALL NEEDS ATTENDED AND ANTICIPATED.WILL CONTINUE TO MONITOR FOR SAFETY AND BEHAVIOR. Addendum: 10/22/22 at 2315 by MARISABEL AGUILA RN VANITA NOTES: RECEIVED PATIENT ON THE HALLWAY SITTING UP ON THE TAYLOR-CHAIR . A/O X1.CONFUSED ,DISORIENTED,HYPERVERBAL EASILY AGITATED.BREATHING EVEN AND NON-LABORED WITH EQUAL RISE AND FALL OF THE CHEST. NO C/O PAIN AT THIS TIME. ALL NEEDS ATTENDED AND ANTICIPATED.WILL CONTINUE TO MONITOR FOR SAFETY AND BEHAVIOR. DISREGARD IST PARAGRAPH
[2022-10-22 20:22] VITALS: BP 128/60
[2022-10-23] MEDS: CEPHALEXIN MONOHYDRATE 250 MG CAPSULE PO SCH ×3 (05:02→21:17)
--- NOTE | 2022-10-23 07:15 | NUR ---
RN OPENING NOTE: RECEIVED PT UP IN TAYLOR CHAIR IN ACTIVITY ROOM AAOX1 WITH CONFUSION. DISORIENTED, HYPERVERBAL. PT IS ITALIAN SPEAKING.NO COMPLAINS OF PAIN OR DISCOMFORT.ON ROOM AIR, NO SOB NOTED. WILL CONTINUE TO MONITOR Q15MIN WITH THE HELP OF STAFF TO MAINTAIN SAFETY.
[2022-10-23 08:00] VITALS: BP 135/94
[2022-10-23] MEDS: ESCITALOPRAM OXALATE (10 MG) 10 MG TABLET PO SCH (08:26)
[2022-10-23] MEDS: ARIPIPRAZOLE 5 MG TABLET PO SCH (08:26)
--- NOTE | 2022-10-23 09:21 | NUR ---
Dr. Omalley gave an order to D/C hold and D/C to [facility] and to follow up with psych and medical doctors. Dr. Omalley ordered to continue same meds including prn.
[2022-10-23] MEDS: risperiDONE-M 0.5 MG TAB.RAPDIS PO SCH ×2 (10:49→17:13)
[2022-10-23 16:00] VITALS: BP 147/79
--- NOTE | 2022-10-23 20:17 | NUR ---
GARNETT FIXER NOTE:RECEIVED PT UP IN TAYLOR CHAIR IN HALLWAY .AOX1 WITH CONFUSION ,DISORIENTED, HYPERVERBAL ,TALKING TO SELF. PT IS SLOVAK SPEAKING.BREATHING NON-LABORED WITH EQUAL RISE AND FALL OF THE CHEST. NO COMPLAINS OF PAIN OR DISCOMFORT AT THIS TIME.ON ROOM AIR, NO SOB NOTED. ALL NEEDS ATTENDED AND ANTICIPATED. WILL CONTINUE TO MONITOR Q15MIN WITH THE HELP OF STAFF TO MAINTAIN SAFETY.
[2022-10-23 21:04] VITALS: BP 157/88
[2022-10-24] MEDS: CEPHALEXIN MONOHYDRATE 250 MG CAPSULE PO SCH ×3 (05:07→20:30)
--- NOTE | 2022-10-24 07:18 | NUR ---
RECEIVED PATIENT ASLEEP BUT AROUSABLE. SAFETY PRECAUTIONS IN PLACED. WILL CONTINUE TO MONITOR THE PATIENT.
[2022-10-24 08:00] VITALS: BP 119/76
[2022-10-24] MEDS: ESCITALOPRAM OXALATE (10 MG) 10 MG TABLET PO SCH (09:51)
[2022-10-24] MEDS: risperiDONE-M 0.5 MG TAB.RAPDIS PO SCH ×2 (09:51→16:41)
[2022-10-24 16:00] VITALS: BP 145/90
--- NOTE | 2022-10-24 18:34 | NUR ---
Patient awake, A/O x1, on Tanya chair at this time for safety, compliant on her crushed medications during shift, safety protocol in placed, will be endorsed to pm shift nurse for charity
--- NOTE | 2022-10-24 19:52 | NUR ---
RN NOTES: RECEIVED PATIENT SITTING UP IN TAYLOR CHAIR,AWAKE ALERT A/OX1. NO S/SX OF ACUTE DISTRESS NOTED.REFUSED TO STAYING IN BED,HIGH FALL RISKS PATIENT IS ,CONFUSED, FORGETFUL ANXIOUS, EASILY AGITATED DELUSIONAL , TALIKG TO SELF , UNCOOPERTIVE, PARANOID , HYPERVERBAL,TALKING TO SELF ,NON COMPLIANT WITH CARE ,NEEDS FREQUENTLY REDIRECTIONS, ENCOURAGED TO VERBALIZED ANY FEELING OR CONCERN ,SAFETY PRECAUTIONS MAINTAINED. WILL CONTINUE TO MONITOR Q15MIN ROUNDS FOR SAFETY.
[2022-10-24 21:43] LABS: ALBUMIN 3.4 g/dL (3.4-5.0); BILIRUBIN,TOTAL 0.1 mg/dL (0.2-1.0); CALCIUM, SERUM 9.3 mg/dL (8.5-10.1); CREATININE 1.1 mg/dL (0.6-1.3); POTASSIUM 3.8 mmol/L (3.5-5.1)
[2022-10-24 21:48] VITALS: BP 118/59
[2022-10-25] MEDS: CEPHALEXIN MONOHYDRATE 250 MG CAPSULE PO SCH ×3 (05:08→22:00)
[2022-10-25 08:00] VITALS: BP 137/91
[2022-10-25] MEDS: risperiDONE-M 0.5 MG TAB.RAPDIS PO SCH ×3 (09:54→16:37)
[2022-10-25] MEDS: ESCITALOPRAM OXALATE (10 MG) 10 MG TABLET PO SCH (09:54)
[2022-10-25 11:21] LABS: EOSINOPHILS % (AUTO) 4.1 % (0.0-6.0); HEMATOCRIT 37 % (33-45); HEMOGLOBIN 11.8 g/dL (11.5-14.8); LYMPHOCYTES # (AUTO) 1.6 K/uL (0.8-4.8); MEAN CORPUSCULAR HGB CONC 32 g/dl (31.0-36.0); MEAN CORPUSCULAR VOLUME 81 fL (82-100); MONOCYTES # (AUTO) 0.3 K/uL (0.1-1.30); NEUTROPHILS # (AUTO) 2.3 K/uL (1.8-8.9); NEUTROPHILS % (AUTO) 51.9 % (43.0-81.0); PLATELET COUNT (AUTO) 304 K/uL (150-450); RED BLOOD CELL COUNT(AUTO) 4.58 MIL/uL (4.0-5.2); WHITE BLOOD COUNT (AUTO) 4.5 K/uL (4.3-11.0)
[2022-10-25] MEDS: TEMAZEPAM 7.5 MG CAPSULE PO PRN (22:28)
[2022-10-26] MEDS: CEPHALEXIN MONOHYDRATE 250 MG CAPSULE PO SCH ×3 (06:05→21:13)
--- NOTE | 2022-10-26 06:25 | NUR ---
END OF SHIFT REPORT Patient in bed, Alert Oriented x1 confused. Restless, sudden outburst of anger. Good appetite, compliant with medication. On abx for UTI, incontinent, voided urine. Poor sleep, Hours of sleep 2 with Restoril. Will endorse to oncoming RN.
[2022-10-26 08:00] VITALS: BP 137/76
[2022-10-26] MEDS: risperiDONE-M 0.5 MG TAB.RAPDIS PO SCH ×3 (09:09→16:29)
[2022-10-26] MEDS: ESCITALOPRAM OXALATE (10 MG) 10 MG TABLET PO SCH (09:09)
[2022-10-26 16:00] VITALS: BP 137/65
--- NOTE | 2022-10-26 18:40 | NUR ---
RN- CLOSING NOTES PATIENT AWAKE, SITTING UP IN THE TAYLOR CHAIR, BREATHING EVEN AND NON LABORED WITH NO S/S OF DISTRESS. PATIENT IS COOPERATIVE/UNCOOPERATIVE AT TIME, CONFUSED, DISORIENTED, DEPRESSED, ANXIOUS, GUARDED, AND EASILY AGITATED. PATIENT IS MEDICATION RESISTANT BUT MEDICATION COMPLIANT WITH ENCOURAGEMENT. DENIES SI/HI BUT IS CONFUSED AT THIS TIME. WILL CONTINUE TO MONITOR Q 15 MINUTES FOR SAFETY AND BEHAVIOR.
[2022-10-26] MEDS: clonazePAM 0.5 MG TABLET PO PRN (19:20)
[2022-10-26] MEDS: TEMAZEPAM 7.5 MG CAPSULE PO PRN (21:24)
[2022-10-27] MEDS: CEPHALEXIN MONOHYDRATE 250 MG CAPSULE PO SCH ×3 (05:04→21:05)
[2022-10-27 08:00] VITALS: BP 141/64
[2022-10-27] MEDS: ESCITALOPRAM OXALATE (10 MG) 10 MG TABLET PO SCH (08:55)
[2022-10-27] MEDS: risperiDONE-M 0.5 MG TAB.RAPDIS PO SCH ×3 (08:56→16:34)
[2022-10-27 16:04] VITALS: BP 100/58
--- NOTE | 2022-10-27 18:51 | NUR ---
RN- CLOSING NOTES PATIENT AWAKE, SITTING UP IN THE TAYLOR CHAIR, BREATHING EVEN AND NON LABORED WITH NO S/S OF DISTRESS. PATIENT IS COOPERATIVE/UNCOOPERATIVE AT TIME, CONFUSED, DISORIENTED, DEPRESSED, ANXIOUS, GUARDED, AND EASILY AGITATED. PATIENT REQUIRES FREQUENT REDIRECTION. PATIENT IS MEDICATION COMPLIANT. DENIES SI/HI BUT IS CONFUSED AT THIS TIME. WILL CONTINUE TO MONITOR Q 15 MINUTES FOR SAFETY AND BEHAVIOR.
[2022-10-28] MEDS: CEPHALEXIN MONOHYDRATE 250 MG CAPSULE PO SCH ×3 (05:48→21:00)
[2022-10-28 08:00] VITALS: BP 101/50
[2022-10-28] MEDS: ESCITALOPRAM OXALATE (10 MG) 10 MG TABLET PO SCH (08:19)
[2022-10-28] MEDS: risperiDONE-M 0.5 MG TAB.RAPDIS PO SCH ×3 (08:20→16:27)
--- NOTE | 2022-10-28 10:45 | NUR ---
Court Hearing: Patient's court hearing for 2030 was today and it was upheld for GD.
--- NOTE | 2022-10-28 10:45 | NUR ---
Court Notification: SW contacted pt's daughter Denisse ([phone]) notified of 0329 hearing.
[2022-10-28 16:00] VITALS: BP 124/51
--- NOTE | 2022-10-28 18:31 | NUR ---
RN- CLOSING NOTES PATIENT AWAKE, SITTING UP IN THE [place]LOR CHAIR, BREATHING EVEN AND NON LABORED WITH NO S/S OF DISTRESS. PATIENT IS COOPERATIVE/UNCOOPERATIVE AT TIMES, CONFUSED, DISORIENTED, DEPRESSED, ANXIOUS, GUARDED, RAMBLING, AND LABILE. PATIENT IS MEDICATION RESISTANT BUT MEDICATION COMPLIANT WITH ENCOURAGEMENT. DENIES SI/HI BUT IS CONFUSED AT THIS TIME. WILL CONTINUE TO MONITOR Q 15 MINUTES FOR SAFETY AND BEHAVIOR.
[2022-10-28 20:02] VITALS: BP 157/85
[2022-10-28 20:39] VITALS: BP 157/85
[2022-10-28] MEDS: TEMAZEPAM 7.5 MG CAPSULE PO PRN (22:10)
[2022-10-29] MEDS: CEPHALEXIN MONOHYDRATE 250 MG CAPSULE PO SCH ×3 (05:35→20:45)
--- NOTE | 2022-10-29 06:35 | NUR ---
RN NOTES - PATIENT SLEEPING IN BED, EASY TO AROUSE. FREQUENT REDIRECTION AND REORIENTATION NEEDED. EASILY AGITATED. ROOM CHECKED FOR CONTRABAND. ABLE TO USE THE BATHROOM WITH ASSIST. BED LOCKED AND IN LOW POSITION, SIDE RAILS UP X2, BED ALARM ON, CALL LIGHT WITHIN REACH. WILL ENDORSE TO NEXT SHIFT FOR BUDDY.
--- NOTE | 2022-10-29 07:35 | NUR ---
RN OPENING NOTE: RECEIVED PT IN BED, AOX 1-2 WITH CONFUSION. PT IS CHINESE SPEAKING. ON RA WITH NO RESP DISTRESS NOTED. DENIES PAIN OR DISCOMFORT. BED KEPT IN LOW AND LOCK POSITION. SPOON FED BY TELEPHONE SURVEYOR. ABLE TO TOLERATE CURRENT DIET. ASPIRATION PRECAUTION OBSERVED. REQUIRES EXTENSIVE ASSISTANCE WITH ADL. WILL CONT TO MONITOR Q15 MIN CHECK FOR SAFETY AND BEHAVIOR.
[2022-10-29 08:00] VITALS: BP 147/96
[2022-10-29] MEDS: ESCITALOPRAM OXALATE (10 MG) 10 MG TABLET PO SCH (08:02)
[2022-10-29] MEDS: risperiDONE-M 0.5 MG TAB.RAPDIS PO SCH ×2 (08:02→16:27)
[2022-10-29 15:37] LABS: CALCIUM, SERUM 9.1 mg/dL (8.5-10.1); CREATININE 0.9 mg/dL (0.6-1.3); POTASSIUM 4.5 mmol/L (3.5-5.1)
[2022-10-29 16:00] VITALS: BP 105/68
--- NOTE | 2022-10-29 16:37 | NUR ---
Assumed Care: Pt. was in the dasha chair in the hallway, confused and cooperative.
[2022-10-30] MEDS: CEPHALEXIN MONOHYDRATE 250 MG CAPSULE PO SCH ×3 (04:49→20:26)
[2022-10-30 08:00] VITALS: BP 118/68
[2022-10-30] MEDS: risperiDONE-M 0.5 MG TAB.RAPDIS PO SCH ×2 (08:30→17:00)
[2022-10-30] MEDS: ESCITALOPRAM OXALATE (10 MG) 10 MG TABLET PO SCH (08:30)
[2022-10-30 16:00] VITALS: BP 102/60
--- NOTE | 2022-10-30 17:50 | NUR ---
RN-NOTES PATIENT WAS VISIBLE IN THE UNIT BUT NO PARTICIPATION IN THE GROUP A/OX1.NO ACUTE DISTRESS NOTED. COMPLIANT WITH MEDICATIONS. PATIENT IS GUARDED,NEEDS ASSIST WITH ADL'S AND REDIRECTIONS AND INSTRUCTIONS.PATIENT NOTED WITH MUMBLING AND TALKING TO SELF. PATIENT NEED ASSIST WITH AMBULATION . ALL NEEDS ATTENDED AND ANTICIPATED. WILL CONT. MONITORING FOR SAFETY AND BEHAVIOR. WILL ENDORSE TO INCOMING NURSE FOR THE CONTINUITY OF CARE
--- NOTE | 2022-10-30 19:31 | NUR ---
RN NOTES: PATIENT WATCHING TV IN ACTIVITY ROOM ,AWAKE ALERT A/OX1. NO S/SX OF ACUTE DISTRESS NOTED.REFUSED TO GO BACK TO HER ROOM, UNSTEADY GAIT, FALL RISKS PATIENT IS ,CONFUSED, FORGETFUL ANXIOUS, EASILY AGITATED DELUSIONAL , TALIKG TO SELF , UNCOOPERTIVE, PARANOID , HYPERVERBAL,TALKING TO SELF ,NON COMPLIANT WITH CARE ,NEEDS FREQUENTLY REDIRECTIONS, ENCOURAGED TO VERBALIZED ANY FEELING OR CONCERN ,SAFETY PRECAUTIONS MAINTAINED. WILL CONTINUE TO MONITOR Q15MIN ROUNDS FOR SAFETY.
[2022-10-30 20:00] VITALS: BP 117/65
[2022-10-31] MEDS: CEPHALEXIN MONOHYDRATE 250 MG CAPSULE PO SCH ×3 (05:11→21:13)
[2022-10-31 08:00] VITALS: BP 124/87
[2022-10-31] MEDS: ESCITALOPRAM OXALATE (10 MG) 10 MG TABLET PO SCH (08:15)
[2022-10-31] MEDS: risperiDONE-M 0.5 MG TAB.RAPDIS PO SCH (08:15)
[2022-10-31 16:00] VITALS: BP 120/65
[2022-10-31] MEDS: clonazePAM 0.5 MG TABLET PO PRN (16:15)
--- NOTE | 2022-10-31 16:19 | NUR ---
RN-NOTES NOTED PATIENT WITH CONTINUOS LAUGHING AND TALKING NONSENSICAL TO SELF. KLONOPIN 0.5MG P.O GIVEN PRN ORDER. WILL CONT.MONITORING FOR SAFETY AND BEHAVIOR.
[2022-10-31 20:00] VITALS: BP 115/67
[2022-10-31] MEDS: risperiDONE 1 MG TABLET PO SCH (21:22)
[2022-11-01] MEDS: CEPHALEXIN MONOHYDRATE 250 MG CAPSULE PO SCH ×3 (05:21→21:14)
[2022-11-01 08:00] VITALS: BP 127/63
[2022-11-01] MEDS: risperiDONE-M 0.5 MG TAB.RAPDIS PO SCH (09:07)
[2022-11-01] MEDS: ESCITALOPRAM OXALATE (10 MG) 10 MG TABLET PO SCH (09:08)
[2022-11-01 16:00] VITALS: BP 102/54
[2022-11-01 19:46] VITALS: BP 108/83
--- NOTE | 2022-11-01 20:28 | NUR ---
CLINICAL CARE COORDINATOR NOTES: RECEIVED PATIENT SITTING UP IN TAYLOR CHAIR,AWAKE ALERT A/OX1. NO S/SX OF ACUTE DISTRESS NOTED.REFUSED TO STAYING IN BED,HIGH FALL RISKS PATIENT IS ,CONFUSED, FORGETFUL ANXIOUS, EASILY AGITATED DELUSIONAL , TALKING TO SELF , UNCOOPERATIVE, PARANOID , HYPERVERBAL ,NON COMPLIANT WITH CARE ,NEEDS FREQUENTLY REDIRECTIONS, ENCOURAGED TO VERBALIZED ANY FEELING OR CONCERN ,SAFETY PRECAUTIONS MAINTAINED. WILL CONTINUE TO MONITOR Q15MIN ROUNDS FOR SAFETY.
[2022-11-01] MEDS: risperiDONE 1 MG TABLET PO SCH (21:15)
--- NOTE | 2022-11-02 00:28 | NUR ---
PATIENT REQUESTED FOR SLEEPING PILLS.ADMINISTERED PRN RESTORIL 15 MG PO.WILL CONTINUE TO MONITOR
[2022-11-02] MEDS: CEPHALEXIN MONOHYDRATE 250 MG CAPSULE PO SCH ×2 (05:03→13:31)
[2022-11-02 08:00] VITALS: BP 148/68
[2022-11-02] MEDS: ESCITALOPRAM OXALATE (10 MG) 10 MG TABLET PO SCH (08:21)
[2022-11-02] MEDS: risperiDONE-M 0.5 MG TAB.RAPDIS PO SCH (08:21)
[2022-11-02] MEDS: clonazePAM 0.5 MG TABLET PO PRN ×2 (08:21→13:31)
[2022-11-02 16:00] VITALS: BP 105/56
[2022-11-02] MEDS: risperiDONE 1 MG TABLET PO SCH (21:41)
[2022-11-02] MEDS: TEMAZEPAM 7.5 MG CAPSULE PO PRN ×2 (21:42)
[2022-11-03] MEDS: ESCITALOPRAM OXALATE (10 MG) 10 MG TABLET PO SCH ×2 (08:08→09:00)
[2022-11-03] MEDS: risperiDONE-M 0.5 MG TAB.RAPDIS PO SCH ×2 (08:08→09:00)
[2022-11-03 08:16] VITALS: BP 128/72
[2022-11-03] MEDS: clonazePAM 0.5 MG TABLET PO PRN ×2 (11:51→16:49)
--- NOTE | 2022-11-03 11:57 | NUR ---
MEDICATION NOTE PATIENT GIVEN PRN KLONOPIN 0.5MG FOR OF ANXIETY AND AGITATION.
[2022-11-03 16:04] VITALS: BP 125/86
--- NOTE | 2022-11-03 19:02 | NUR ---
CLOSING NOTE PATIENT IS ASLEEP WITH VISIBLE CHEST EXTENSION, ON ROOM AIR, STABLE WITH NO S/S OF SOB. FALL AND SAFETY PRECAUTION IN REMAIN: BED LOCK AND AT THE LOWEST POSITION, SRx2.
[2022-11-03 20:09] VITALS: BP 120/84
[2022-11-03] MEDS: risperiDONE 1 MG TABLET PO SCH (21:55)
[2022-11-04 08:00] VITALS: BP 118/58
[2022-11-04] MEDS: risperiDONE-M 0.5 MG TAB.RAPDIS PO SCH (08:55)
[2022-11-04] MEDS: ESCITALOPRAM OXALATE (10 MG) 10 MG TABLET PO SCH (08:55)
[2022-11-04] MEDS: clonazePAM 0.5 MG TABLET PO PRN (08:55)
[2022-11-04 16:00] VITALS: BP 104/72
[2022-11-04 19:58] VITALS: BP 102/61
[2022-11-04] MEDS: risperiDONE 1 MG TABLET PO SCH (21:09)
[2022-11-05 08:00] VITALS: BP 102/67
[2022-11-05] MEDS: risperiDONE-M 0.5 MG TAB.RAPDIS PO SCH (08:29)
[2022-11-05] MEDS: ESCITALOPRAM OXALATE (10 MG) 10 MG TABLET PO SCH (08:29)
--- NOTE | 2022-11-05 10:03 | NUR ---
SW Discharge Note: Patient will be discharged to longterm facility [facility] located at [address] [place] [address]; ([phone]). Please arrange ambulance at 1PM. Healthcare Architect spoke with [facility] [employer] Specialist ([phone]) who stated patient will be accepted at facility today. Patient is alert and oriented x1. Patient denies any suicidal or homicidal ideations. Patient is aware and agreeable with discharge plans. Patients daughter Denisse ([phone]) is aware and agreeable. Patient will continue to follow-up with ([place]iat[place]) [place] [address] [address]; ([phone]) and (Claim Processor) Dr. Blanco [address] [place] [address]; ([phone]). Patient presents with euthymic mood and congruent affect.
--- NOTE | 2022-11-05 10:28 | NUR ---
Marco Pearl MOLASSES AND CARAMEL OPERATOR gave an order to D/C hold and D/C to [facility] and to follow up with psych and medical doctors. Marco ACOSTA reconciled on meds to continue in the facility.
--- NOTE | 2022-11-05 10:32 | NUR ---
RN- NOTES MEDICATIONS RECONCILED WITH DR. LAUREANO TO CONTINUE ALL MEDICATIONS AND PRN'S UPON DISCHARGE.
--- NOTE | 2022-11-05 12:00 | NUR ---
RN- NOTES GAVE REPORT TO VANITA MASSEY AT [facility] FOR CONTINUATION OF CARE.
--- NOTE | 2022-11-05 13:00 | NUR ---
RN- DISCHARGE NOTES PATIENT DISCHARGED TO [address] [address] IN STABLE CONDITION. COMPLIANT WITH MEDICATIONS, AND COOPERATIVE WITH TREATMENT PLANS. PATIENT DENIES SUICIDAL/HOMICIDAL IDEATION AND AUDITORY/VISUAL HALLUCINATIONS. BEHAVIOR IMPROVED, PSYCHIATRIC TREATMENT PLANS MET, MEDICAL TREATMENT PLANS DEFERRED FOR CONTINUAL MONITORING. EDUCATED PATIENT ABOUT AFTER CARE PLAN AND COPY PROVIDED. RETURNED ALL PERSONAL BELONGINGS TO PATIENT. PATIENT IS WITHOUT DISTRESS. MEDICATIONS RECONCILED WITH PSYCHIATRIST DR. JENKINS, WORKING ALONG SIDE DR. CRANE, AND MED LETTUCE TRIMMER DR. LAUREANO. REPORT GIVEN TO VANITA MASSEY, AT [facility] FOR CONTINUITY OF CARE. PATIENT IS UNABLE TO SIGN DISCHARGE PAPERWORK DUE TO MENTAL STATUS, PAPERWORK COMPLETED AND CO-SIGNED. PATIENT SKIN INTACT, NO PHOTOS REQUIRED. PATIENT LEFT THE UNIT AT 1300 VIA AMBULANCE ON A GURNEY.
== END 2022-11-05 13:00 | DRG 885 ==
LOC: ER 18:25 → GPS 22:05
PROVIDERS: ADMIT Nurse Practitioner Psychiatric/Mental Health; ATTEND Internal Medicine
DX: F33.3 Major depressive disorder, recurrent, severe with psychotic symptoms (principal); N17.9 Acute kidney failure, unspecified; N39.0 Urinary tract infection, site not specified; F02.84 Dementia in other diseases classified elsewhere, unspecified severity, with anxiety; E86.0 Dehydration; G30.9 Alzheimer's disease, unspecified; M62.81 Muscle weakness (generalized); R27.8 Other lack of coordination; B96.89 Other specified bacterial agents as the cause of diseases classified elsewhere; Z20.822 Contact with and (suspected) exposure to COVID-19; G47.00 Insomnia, unspecified
CPT/HCPCS: 36415; 71045-TC; 80048-TC; 80053-TC; 80076-TC; 81001; 82962-TC; 84443-TC; 84484-TC; 85025-TC; 87081-TC; 87086-TC; C9803; G0480; J0696; J3490